=== PATIENT | female | born 1955 | race Caucasian/White ===

== ENCOUNTER 2016-10-06 06:04 | Emergency (ER) | payer SELFPAY ==
[~2016-10-06] VITALS: Ht 165.1 cm; Wt 104.3 kg
[2016-10-06 06:27] VITALS: BP 170/94
== END 2016-10-06 06:28 | disposition left against medical advice (07) ==
LOC: ER 06:04 → EDBD 06:04 → ER 06:28
DX: R04.0 Epistaxis (principal); Z53.21 Procedure and treatment not carried out due to patient leaving prior to being seen by health care provider